=== PATIENT | male | born 1970 | race Caucasian/White ===

== ENCOUNTER 2019-08-29 05:39 | Outpatient (CLI) | payer BC ==
[~2019-08-29] VITALS: Ht 180.3 cm; Wt 100.0 kg
[~2019-08-29 05:39] MED LIST: ASCO-262 PO; ASPI-892 PO; FENO145T; METO-272 PO; MTP25TSR; PNT40TEC; PRD20T PO; SIMV20TA3 PO
[2019-08-29] MEDS ORDERED: VITA1CAP PO (14:39)
[2019-08-29] MEDS ORDERED: AMLO10TA7 PO (14:39)
[2019-09-06] MEDS ORDERED: ACHD5005 PO (14:49)
== END 2019-08-29 14:47 | disposition home or self-care (01) ==
LOC: PREOP 05:39
PROVIDERS: ATTEND Podiatrist Foot & Ankle Surgery
DX: Z01.818 Encounter for other preprocedural examination (principal)

== ENCOUNTER 2019-09-06 11:33 | Day surgery (SDC) | payer BC ==
[2019-09-06] VITALS (13 sets, daily range): BP systolic 129–168; BP diastolic 71–102
[~2019-09-06] VITALS: Ht 180.3 cm; Wt 100.0 kg
[~2019-09-06 11:33] MED LIST changes: +AMLO10TA7 PO; +VITA1CAP PO
[2019-09-06] MEDS ORDERED: IBUP-2055 PO (11:54)
[2019-09-06] MEDS ORDERED: DEXAMETHASONE 10 MG/ML (DECADRON) 1 ML VIAL ONE ×2 (12:00→12:02)
[2019-09-06] MEDS ORDERED: LIDOCAINE 1% INJ 20 ML 20 ML VIAL ONE (12:00)
[2019-09-06] MEDS ORDERED: BUPIVACAINE 0.5% 30 ML (SENSORCAINE) VIAL ONE (12:00)
[2019-09-06] MEDS ORDERED: ceFAZolin INJECTION 1,000 MG in WATER (STERILE) FOR INJECTION 10 ML IV ONE (12:00)
[2019-09-06] MEDS ORDERED: SEVOFLURANE (ULTANE) 15 ML INHAL SOLN ONE ×4 (12:02→14:19)
[2019-09-06] MEDS ORDERED: proPOfol 200 MG/20 ML (DIPRIVAN) VIAL IV ONE (12:02)
[2019-09-06] MEDS ORDERED: ONDANSETRON 4 MG/2 ML (SDV) Z0FRAN ONE (12:02)
[2019-09-06] MEDS ORDERED: MIDAZOLAM 2 MG/2 ML (VERSED) VIAL ONE (12:02)
[2019-09-06] MEDS ORDERED: LIDOCAINE PF 2% 5 ML (XYLOCAINE) VIAL ONE (12:02)
[2019-09-06] MEDS ORDERED: fentaNYL INJECTION 100 MCG/2 ML AMP ONE ×2 (12:02→13:22)
[2019-09-06] MEDS: LACTATED RINGERS 1,000 ML IV PRN ×2 (12:09→13:30)
--- NOTE | 2019-09-06 12:46 | Progress Note-Pre Operative ---
Pre-Operative Progress Note H&P Reviewed The H&P was reviewed, patient examined and no changes noted. Date Seen by Provider: Sep 06, 2019 Time Seen by Provider: 12:46 Date H&P Reviewed: Sep 06, 2019 Time H&P Reviewed: 12:46 Pre-Operative Diagnosis: Tarsal Tunnel Syndrome, Plantar Fasciitis, left foot ARCHIE ROGERS DPM Sep 06, 2019 12:46
[2019-09-06] MEDS ORDERED: BACITRACIN OINTMENT 28 GM TUBE ONE (13:59)
[2019-09-06] MEDS ORDERED: morphine INJ 10 MG/ML 1ML (SYR OR VIAL) IVP ONE (14:15)
[2019-09-06] MEDS ORDERED: ONDANSETRON 4 MG/2 ML (SDV) Z0FRAN IVP PRN (14:15)
[2019-09-06] MEDS ORDERED: HYDROmorphone 2 MG/ML VIAL (DILAUDID) IV ONE (14:15)
[2019-09-06] MEDS ORDERED: LACTATED RINGERS 1,000 ML IV SCH (14:47)
--- NOTE | 2019-09-06 14:47 | Progress Note-Post Operative ---
Post-Operative Progess Note Surgeon (s)/Posting Machine Operator (s) Surgeon ARCHIE ROGERS DPM Posting Machine Operator: None Pre-Operative Diagnosis Tarsal Tunnel Syndrome, Plantar Fasciitis, left foot Post-Operative Diagnosis Same Procedure & Operative Findings Date of Procedure 09/06/19 Procedure Performed/Findings Tarsal Tunnel Release, Plantar Fascial Release, left foot Anesthesia Type General Estimated Blood Loss Estimated blood loss (mL): Minimal Specimens/Packing Specimens Removed Plantar Fascia, left foot ARCHIE ROGERS DPM Sep 06, 2019 14:47
[2019-09-06] MEDS ORDERED: ACHD5005 PO (14:49)
[2019-09-06] MEDS ORDERED: HYDROcodone/APAP 5 MG/325 MG (LORTAB) TAB PO PRN (15:00)
--- NOTE | 2019-09-06 16:40 | Physical Therapy Ortho Eval ---
PT Orthopedic Evaluation Type of Surgery tarsal tunnel release left side Prior Level of Function Current Living Status: Spouse Locomotion (Upon Admit): Independent Established Durable Medical Eq: Crutches Subjective Subjective Patient in bed pre tx, agrees to PT, has no complaints of pain. Patient is very drowsy and nauseated. Entry Into Home: Stairs Without Railing Steps Into Home: 2 Motor Control Motor Control: Motor Control WNL Transfer Transfers (B, C, W/C) (FIM): 4 Gait Gait Assistive Device: Crutches Patient stood at the side of the bed and got very nauseated and dizzy and had to lay back down. Gait training using crutches was explained and demonstrated to the patient and his and how to go up and down stairs. Patient cannot get up and ambulate at this time. Patient and his seemed to understand directions and were able to explain them back. Right Lower Extremity: Right Weight Bearing Status RLE: Full Weight Bearing Left Lower Extremity: Left Weight Bearing Status LLE: Non Weight Bearing Treatment Rendered Treatment: Therapeutic Exercises Exercise Instruction: Quad Sets, Heel Slides Assessment/Goals Goal Time Frame: 1 Visit Understands HEP: Yes Plan Treatment Plan: Discharge PT/Family Agrees to Plan: Yes Time Time In: 1615 Time Out: 1633 Total Billed Treatment Time: 18 Billed Treatment Time 1 visit LELAND Hamilton' FRANCHESCA KENDALL PT Sep 06, 2019 16:40
[2019-09-06] MEDS ORDERED: ONDANSETRON 4 MG (ZOFRAN) ORAL DISSOLVE TAB PO STA (16:46)
[2019-09-06] MEDS ORDERED: ONDANSETRON 4 MG (ZOFRAN) ORAL DISSOLVE TAB ONE (16:51)
--- NOTE | 2019-09-06 16:51 | Anesthesia-General Post-Op ---
General Patient Condition Mental Status/LOC: Same as Preop Cardiovascular: Satisfactory Nausea/Vomiting: Absent Respiratory: Satisfactory Pain: Controlled Complications: Absent Post Op Complications Complications None Follow Up Care/Instructions Patient Instructions None needed. Anesthesia/Patient Condition Patient Condition Patient is doing well, no complaints, stable vital signs, no apparent adverse anesthesia problems. No complications reported per nursing. GURPREET SPENCER CRNA Sep 06, 2019 16:51
--- NOTE | 2019-09-06 23:50 | OPERATIVE REPORT ---
DATE OF SERVICE: SURGEON: Marlin Rogers DPM PREOPERATIVE DIAGNOSES: 1. Tarsal tunnel syndrome, left. 2. Mccurdy's neuritis, left. 3. Plantar fasciitis, left. POSTOPERATIVE DIAGNOSES: 1. Tarsal tunnel syndrome, left. 2. Mccurdy's neuritis, left. 3. Plantar fasciitis, left. PROCEDURES PERFORMED: 1. Tarsal tunnel release, left foot. 2. Plantar fascial release, left. 3. Release of Mccurdy's nerve, left. WOUND CLASS: Clean. ANESTHESIA: General. HEMOSTASIS: Pneumatic thigh tourniquet at 300 mmHg. INDICATIONS: This is a 49-year-old male who presents complaining of a painful left foot. Conservative therapy has met with unsatisfactory results and the patient is agreeable to surgical intervention after risks and complications were discussed at length. No guarantees were extended to the patient and he is willing to proceed. DESCRIPTION OF PROCEDURE: The patient was brought back to the operating table, placed in secure supine position. General anesthetic was then induced. Appropriate timeout was performed. Pneumatic thigh tourniquet was placed on the left lower extremity over several layers of padding. Left foot was then prepped and draped in the normal sterile manner. Attention was then directed to the medial aspect of the left rearfoot where an 11 cm longitudinal linear incision was created starting to the posterior aspect of the medial malleolus just adjacent to the distal tip at its most proximal portion extending inferiorly and slightly anteriorly along the tarsal tunnel into the plantar aspect of the foot and onto the medial half of the inferior left foot just anterior to the calcaneal fat pad contact point. The incision was deepened in the same plane with great care to identify and retract all vital neurovascular structures. All the necessary blood vessels were cauterized as encountered. The incision was deepened down to the deep fascia, which was carefully incised after tenting with a curved hemostat. Once deep fascia was incised, the most distal aspect of the flexor retinaculum was visualized. The flexor retinaculum was then tented carefully and incised with a combination of 15 blade as well as dissecting scissors. This exposed the neurovascular structures of the tarsal tunnel. Some varicosities to the venae comitantes was identified. The wound was flushed with copious amounts of normal saline. Next, dissection was carried out at the abductor hiatus where the abductor muscle belly was retracted inferiorly and slightly medially. Digital dilation was appreciated with some but there was extremely tight hiatus noted. We then released the deep fascia between the abductor hallucis muscle belly and the quadratus plantae. Again, great care was taken to preserve the neurovascular structures. Next, the inferior aspect of the neurovascular bundle was identified to the inferior aspect of the abductor hallucis muscle belly. Again, the fascia was released from the inferior to superior with great care to protect the neurovascular structures. The Mccurdy's nerve was identified and no longer was bound down with the deep fascia. The wound was flushed with copious amounts of normal saline. Attention was then directed to the plantar fascia where the medial band was released. The central band of the proximal plantar fascia was extremely thickened and a section of approximately 1 cm was removed and sent for gross and microscopic evaluation. This was done overlying the flexor digitorum brevis muscle belly. This reduced a considerable amount of tension to the plantar fascia when the digits were extended. The wound was then flushed with copious amounts of normal saline. No other abnormalities were identified. The entire wound was once again flushed. The tourniquet was released and all active bleeders to the subcutaneous tissue were cauterized. No deep active bleeders were noted at this time. The wound was flushed once again after which closure was then performed in layers. Subcutaneous tissue was reapproximated with 4-0 Vicryl and skin closure was performed with 4-0 Prolene in a horizontal mattress type stitch. Postoperative injection consisted of 20 mL of 0.5% Marcaine injected a local infused into the surgical site, also 10 mg of dexamethasone was injected into the tarsal tunnel as well as the plantar fascia insertional area of the left foot. Postoperative dressing consisted of bacitracin, Adaptic, sterile 4 x 4's, soft roll, three ABD pads padding the forefoot heel and posterior left proximal leg. A posterior splint was then applied with two Wood wraps. The patient tolerated the anesthesia and procedure well, was transported from the operating room to the recovery area with vital signs stable and vascular status intact to all digits of the left foot. Postoperative instructions were dispensed to the patient as well as prescription for hydrocodone. He is to follow up in my office in 10 days' period of time or sooner if necessary. Job ID: [id number] DocumentID: [id number] Dictated Date: 09/06/2019 15:00:45 Brewing Technician Date: 09/06/2019 23:50:07 Dictated By: MARLIN ROGERS DPM
== END 2019-09-06 17:20 | disposition home or self-care (01) ==
LOC: SDC 11:33
PROVIDERS: ATTEND Podiatrist Foot & Ankle Surgery
DX: G57.52 Tarsal tunnel syndrome, left lower limb (principal); M72.2 Plantar fascial fibromatosis; I10 Essential (primary) hypertension; G47.33 Obstructive sleep apnea (adult) (pediatric); Z88.8 Allergy status to other drugs, medicaments and biological substances; Z91.048 Other nonmedicinal substance allergy status; Z99.89 Dependence on other enabling machines and devices; Z79.891 Long term (current) use of opiate analgesic; Z79.899 Other long term (current) drug therapy
CPT/HCPCS: 87081